=== PATIENT | male | born 1940 | race Two or more races ===

== ENCOUNTER 2023-11-19 19:41 | Emergency (ER) | payer MEDICARE, OTHER ==
[~2023-11-19] VITALS: Ht 167.6 cm; Wt 59.0 kg
[2023-11-19] MEDS ORDERED: ACETAMINOPHEN 325 MG TABLET ONE (21:32)
[2023-11-19] MEDS: ACETAMINOPHEN 325 MG TABLET PO ONE (21:38)
[2023-11-19 21:47] LABS: BASOPHILS # (AUTO) 0.1 K/uL (0.0-0.2); BASOPHILS % (AUTO) 0.5 % (0.0-2.0); EOSINOPHILS # (AUTO) 0.1 K/uL (0.0-0.7); EOSINOPHILS % (AUTO) 0.6 % (0.0-6.0); HEMATOCRIT 39 % (39-51); HEMOGLOBIN 12.8 g/dL (13.5-17.5); LYMPHOCYTES # (AUTO) 1.5 K/uL (0.8-4.8); MEAN CORPUSCULAR HEMOGLOBIN 28 PG (26.0-33.0); MEAN CORPUSCULAR HGB CONC 33 g/dl (31.0-36.0); MEAN CORPUSCULAR VOLUME 83 fL (80-96); MONOCYTES # (AUTO) 0.9 K/uL (0.1-1.30); MONOCYTES % (AUTO) 8.4 % (2.0-12.0); NEUTROPHILS # (AUTO) 8.1 K/uL (1.8-8.9); NEUTROPHILS % (AUTO) 76.5 % (43.0-81.0); PLATELET COUNT (AUTO) 201 K/uL (150-450); RED BLOOD CELL COUNT(AUTO) 4.66 MIL/uL (4.5-6.0); RED CELL DISTRIBUTION WIDTH 16.8 % (11.5-15.0); WHITE BLOOD COUNT (AUTO) 10.6 K/uL (4.3-11.0)
[2023-11-19 21:56] LABS: CALCIUM, SERUM 9.8 mg/dL (8.5-10.1); CARBON DIOXIDE 26 mmol/L (21-32); CHLORIDE 106 mmol/L (98-107); CREATININE 1.2 mg/dL (0.6-1.3); GLUCOSE 150 mg/dL (74-106); POTASSIUM 4.5 mmol/L (3.5-5.1); SODIUM SERUM 137 mmol/L (136-145); UREA NITROGEN, BLOOD 18 mg/dL (7-18)
[2023-11-19 22:02] LABS: ALANINE AMINOTRANSFERASE 22 U/L (12-78); ALBUMIN 3.3 g/dL (3.4-5.0); ALKALINE PHOSPHATASE 103 U/L (46-116); ASPARTATE AMINOTRANSFERASE 16 U/L (15-37); BILIRUBIN,DIRECT 0.2 mg/dL (0.0-0.2); BILIRUBIN,TOTAL 0.6 mg/dL (0.2-1.0); TOTAL PROTEIN, SERUM 7.7 g/dL (6.4-8.2)
[2023-11-20 03:07] VITALS: BP 127/77; TEMP 98.6; O2SAT 96
== END 2023-11-20 03:08 ==
LOC: ER 19:42
DX: M54.2 Cervicalgia (principal); M25.512 Pain in left shoulder; R51.9 Headache, unspecified; I10 Essential (primary) hypertension; I48.91 Unspecified atrial fibrillation; E78.5 Hyperlipidemia, unspecified; E11.9 Type 2 diabetes mellitus without complications; Z86.59 Personal history of other mental and behavioral disorders
CPT/HCPCS: 36415; 70450-TC; 71045-TC; 71250-TC; 72125-TC; 73030-TC; 80048-TC; 80076-TC; 84484-TC; 85025-TC

== ENCOUNTER 2024-01-30 11:30 | Inpatient (IN) | payer MEDICARE, OTHER ==
[~2024-01-30] VITALS: Ht 167.6 cm; Wt 54.9 kg
[2024-01-30] MEDS: IV NS 0.9% 1,000 ML BAG IV ONE ×2 (11:45→12:50)
[2024-01-30 12:07] LABS: VBG BASE EXCESS -1.6 mmol/L (-3-3); VBG COHb 5.1 %; VBG MetHb 0.3 %; VBG O2Hb 49.3 %; VBG OXYGEN SATURATION 52.1 %; VBG PCO2 38.8 mmHg (40-52); VBG PH 7.392 (7.31-7.41); VBG PO2 26.1 mmHg (30-50); VBG TOTAL HEMOGLOBIN 12.1 G/dL (13.5-18.0); VENT MODE, VBG ROOM AIR
[2024-01-30 12:18] LABS: CALCIUM, SERUM 9.2 mg/dL (8.5-10.1); CARBON DIOXIDE 30 mmol/L (21-32); CHLORIDE 95 mmol/L (98-107); CREATININE 1.1 mg/dL (0.6-1.3); POTASSIUM 4.6 mmol/L (3.5-5.1); SODIUM SERUM 129 mmol/L (136-145); UREA NITROGEN, BLOOD 14 mg/dL (7-18)
[2024-01-30 12:19] LABS: BASOPHILS % (AUTO) 0.5 % (0.0-2.0); EOSINOPHILS # (AUTO) 0.1 K/uL (0.0-0.7); EOSINOPHILS % (AUTO) 1.4 % (0.0-6.0); HEMATOCRIT 37 % (39-51); HEMOGLOBIN 11.9 g/dL (13.5-17.5); LYMPHOCYTES # (AUTO) 1.2 K/uL (0.8-4.8); LYMPHOCYTES % (AUTO) 21.3 % (20.0-44.0); MEAN CORPUSCULAR HEMOGLOBIN 29 PG (26.0-33.0); MEAN CORPUSCULAR HGB CONC 32 g/dl (31.0-36.0); MEAN CORPUSCULAR VOLUME 89 fL (80-96); MONOCYTES # (AUTO) 0.4 K/uL (0.1-1.30); MONOCYTES % (AUTO) 6.1 % (2.0-12.0); NEUTROPHILS # (AUTO) 4.1 K/uL (1.8-8.9); NEUTROPHILS % (AUTO) 70.7 % (43.0-81.0); PLATELET COUNT (AUTO) 148 K/uL (150-450); RED BLOOD CELL COUNT(AUTO) 4.13 MIL/uL (4.5-6.0); RED CELL DISTRIBUTION WIDTH 17.9 % (11.5-15.0); WHITE BLOOD COUNT (AUTO) 5.8 K/uL (4.3-11.0)
[2024-01-30 12:25] LABS: ALANINE AMINOTRANSFERASE 25 U/L (12-78); ALBUMIN 2.7 g/dL (3.4-5.0); ALKALINE PHOSPHATASE 161 U/L (46-116); ASPARTATE AMINOTRANSFERASE 11 U/L (15-37); BILIRUBIN,DIRECT 0.2 mg/dL (0.0-0.2); BILIRUBIN,TOTAL 0.5 mg/dL (0.2-1.0); LIPASE 71 U/L (16-77); TOTAL PROTEIN, SERUM 6.4 g/dL (6.4-8.2)
[2024-01-30 12:30] LABS: GLUCOSE 665 mg/dL (74-106)
[2024-01-30 12:41] LABS: APPEARANCE,URINE CLEAR (CLEAR); BILIRUBIN,URINE NEGATIVE (NEGATIVE); BLOOD, URINE NEGATIVE Ery/uL (NEGATIVE); COLOR,URINE YELLOW (YELLOW); KETONES,URINE NEGATIVE (NEGATIVE); LEUKOCYTE ESTERASE ,URINE NEGATIVE (NEGATIVE); NITRITE, URINE POSITIVE (NEGATIVE); PROTEIN,URINE NEGATIVE (NEGATIVE); UGLUCOSE 3+ mg/dL (NEGATIVE); UROBILINOGEN,URINE 0.2 EU/dL (0.2)
[2024-01-30] MEDS ORDERED: INSULIN REGULAR, HUMAN 100 UNIT/ML 10 ML VIAL ONE (12:47)
[2024-01-30] MEDS: INSULIN REGULAR, HUMAN 100 UNIT/ML 10 ML VIAL SQ ONE (12:51)
[2024-01-30 12:57] LABS: ADD URINE CULTURE YES; BACTERIA,URINE Few /HPF (None Seen); RBC,URINE 0-2 /HPF (0-2); SQUAMOUS EPITHELIAL CELL,UR Rare /HPF (None Seen)
[2024-01-30] MEDS ORDERED: CYAN-51 PO (13:18)
[2024-01-30] MEDS ORDERED: DEXA1TAB PO (13:18)
[2024-01-30] MEDS ORDERED: HYDR-500 PO (13:18)
[2024-01-30] MEDS ORDERED: PYRI100T10 PO (13:18)
[2024-01-30] MEDS ORDERED: ASPI-1169 PO (13:18)
[2024-01-30] MEDS ORDERED: METF-442 PO (13:18)
[2024-01-30] MEDS ORDERED: PARO10TA4 PO (13:18)
[2024-01-30] MEDS ORDERED: GLIP5TAB13 PO (13:18)
[2024-01-30] MEDS ORDERED: FAMO20TA80 PO (13:18)
[2024-01-30] MEDS ORDERED: MAGN400T30 PO (13:18)
[2024-01-30] MEDS ORDERED: CANA100T PO (13:18)
[2024-01-30] MEDS ORDERED: TIZA-180 PO (13:18)
[2024-01-30] MEDS ORDERED: CLINDAMYCIN PHO TP (13:18)
[2024-01-30] MEDS ORDERED: DIPH103G TP (13:18)
[2024-01-30] MEDS ORDERED: BENZ1TAB7 PO (13:18)
[2024-01-30] MEDS ORDERED: NITR0.4T48 SL (13:18)
[2024-01-30] MEDS ORDERED: NATE120T6 PO (13:18)
[2024-01-30] MEDS ORDERED: ONDA-97 PO (13:18)
[2024-01-30] MEDS ORDERED: DIVA125C5 PO (13:18)
[2024-01-30] MEDS ORDERED: APIX2.5T PO (13:18)
[2024-01-30] MEDS ORDERED: ONDANSETRON HCL/PF 4 MG/2 ML VIAL IVP PRN (16:00)
[2024-01-30] MEDS ORDERED: ZOLPIDEM TARTRATE 5 MG TABLET PO PRN (16:00)
[2024-01-30] MEDS ORDERED: NITROGLYCERIN 0.4 MG/TAB BOTTLE SL PRN (16:00)
[2024-01-30] MEDS ORDERED: DEXTROSE 50%-WATER 50 ML DISP.SYRIN IV PRN (16:00)
[2024-01-30] MEDS ORDERED: ACETAMINOPHEN 325 MG TABLET PO PRN (16:00)
[2024-01-30] MEDS ORDERED: MAG HYDROX/AL HYDROX/SIMETH 30 ML UDC PO PRN (16:00)
[2024-01-30] MEDS ORDERED: MAGNESIUM HYDROXIDE 30 ML UDC PO PRN (16:00)
[2024-01-30 16:10] VITALS: O2SAT 96
[2024-01-30] MEDS ORDERED: TIZANIDINE HCL 4 MG TABLET PO PRN (17:00)
[2024-01-30] MEDS ORDERED: hydrOXYzine PAMOATE 25 MG CAPSULE PO PRN (17:00)
[2024-01-30] MEDS: BENZTROPINE MESYLATE (1 MG) 1 MG TABLET PO SCH (17:12)
[2024-01-30] MEDS: BLOOD SUGAR DIAGNOSTIC 1 EACH STRIP IN SCH (17:13)
[2024-01-30] MEDS: APIXABAN 2.5 MG TABLET PO SCH (17:13)
[2024-01-30] MEDS: METFORMIN 500 MG TABLET PO SCH (18:45)
[2024-01-30] MEDS: IV NS 0.9% 1,000 ML IV PRN (18:45)
[2024-01-30 20:00] VITALS: BP 100/61; TEMP 98.1; O2SAT 95
[2024-01-30] MEDS: DIVALPROEX SODIUM 125 MG CAP.SPRINK PO SCH (21:01)
[2024-01-30] MEDS: dexAMETHasone 1 MG TABLET PO SCH (21:01)
[2024-01-30] MEDS: INSULIN REGULAR, HUMAN 100 UNIT/ML 3 ML VIAL SQ PRN (22:25)
[2024-01-30] MEDS: *INSULIN REGULAR(HUMULIN R)HUM 100 UNIT/ML VIAL SQ PRN (22:30)
[2024-01-31 06:47] LABS: BASOPHILS % (AUTO) 0.3 % (0.0-2.0); EOSINOPHILS # (AUTO) 0.3 K/uL (0.0-0.7); EOSINOPHILS % (AUTO) 4.4 % (0.0-6.0); HEMATOCRIT 35 % (39-51); HEMOGLOBIN 11.6 g/dL (13.5-17.5); LYMPHOCYTES % (AUTO) 30.5 % (20.0-44.0); MEAN CORPUSCULAR HEMOGLOBIN 29 PG (26.0-33.0); MEAN CORPUSCULAR HGB CONC 33 g/dl (31.0-36.0); MEAN CORPUSCULAR VOLUME 86 fL (80-96); MONOCYTES # (AUTO) 0.5 K/uL (0.1-1.30); MONOCYTES % (AUTO) 7.2 % (2.0-12.0); NEUTROPHILS # (AUTO) 3.8 K/uL (1.8-8.9); NEUTROPHILS % (AUTO) 57.6 % (43.0-81.0); PLATELET COUNT (AUTO) 145 K/uL (150-450); RED BLOOD CELL COUNT(AUTO) 4.03 MIL/uL (4.5-6.0); RED CELL DISTRIBUTION WIDTH 18.4 % (11.5-15.0); WHITE BLOOD COUNT (AUTO) 6.5 K/uL (4.3-11.0)
[2024-01-31 07:20] LABS: CALCIUM, SERUM 8.7 mg/dL (8.5-10.1); CARBON DIOXIDE 24 mmol/L (21-32); CHLORIDE 105 mmol/L (98-107); CREATININE 0.8 mg/dL (0.6-1.3); GLUCOSE 117 mg/dL (74-106); MAGNESIUM 1.4 mg/dL (1.8-2.4); PHOSPHORUS 2.5 mg/dL (2.5-4.9); SODIUM SERUM 137 mmol/L (136-145); UREA NITROGEN, BLOOD 12 mg/dL (7-18)
[2024-01-31] MEDS ORDERED: ONDANSETRON 4 MG TAB.RAPDIS PO PRN (07:30)
[2024-01-31] MEDS: NATEGLINIDE 60 MG TABLET PO SCH (07:56)
[2024-01-31] MEDS: FAMOTIDINE (20 MG) 20 MG TABLET PO SCH (07:56)
[2024-01-31] MEDS: PANTOPRAZOLE 40 MG TABLET.DR PO SCH (07:56)
[2024-01-31 08:00] VITALS: BP 107/52; TEMP 98.1; O2SAT 97
[2024-01-31] MEDS ORDERED: INVOKANA 100 MG PO SCH (09:00)
[2024-01-31] MEDS: ASPIRIN 81 MG TAB.CHEW PO SCH (09:48)
[2024-01-31] MEDS: glipiZIDE 5 MG TABLET PO SCH (09:53)
[2024-01-31] MEDS: MAGNESIUM OXIDE 400 MG TABLET PO SCH (09:54)
[2024-01-31] MEDS: PAROXETINE HCL 10 MG TABLET PO SCH (09:55)
[2024-01-31] MEDS: CYANOCOBALAMIN 500 MCG TABLET PO SCH (09:55)
[2024-01-31] MEDS: PYRIDOXINE HCL 50 MG TABLET PO SCH (09:55)
[2024-01-31] MEDS: Z GUARD REMEDY 4 OZ OINT TP PRN (12:12)
[2024-01-31 16:00] VITALS: BP 116/67; TEMP 98.5; O2SAT 95
[2024-01-31 20:38] VITALS: BP 118/80; TEMP 97.9; O2SAT 98
[2024-02-01 07:42] LABS: BASOPHILS % (AUTO) 0.3 % (0.0-2.0); EOSINOPHILS # (AUTO) 0.1 K/uL (0.0-0.7); EOSINOPHILS % (AUTO) 1.3 % (0.0-6.0); HEMATOCRIT 37 % (39-51); LYMPHOCYTES % (AUTO) 22.2 % (20.0-44.0); MEAN CORPUSCULAR HEMOGLOBIN 28 PG (26.0-33.0); MEAN CORPUSCULAR HGB CONC 32 g/dl (31.0-36.0); MEAN CORPUSCULAR VOLUME 87 fL (80-96); MONOCYTES # (AUTO) 0.4 K/uL (0.1-1.30); MONOCYTES % (AUTO) 4.5 % (2.0-12.0); NEUTROPHILS # (AUTO) 6.5 K/uL (1.8-8.9); NEUTROPHILS % (AUTO) 71.7 % (43.0-81.0); PLATELET COUNT (AUTO) 164 K/uL (150-450); RED BLOOD CELL COUNT(AUTO) 4.25 MIL/uL (4.5-6.0); RED CELL DISTRIBUTION WIDTH 18.2 % (11.5-15.0); WHITE BLOOD COUNT (AUTO) 9.1 K/uL (4.3-11.0)
[2024-02-01 08:00] VITALS: BP 143/100; TEMP 98.4; O2SAT 20
[2024-02-01 08:44] LABS: CALCIUM, SERUM 8.7 mg/dL (8.5-10.1); CARBON DIOXIDE 20 mmol/L (21-32); CHLORIDE 102 mmol/L (98-107); GLUCOSE 395 mg/dL (74-106); MAGNESIUM 1.3 mg/dL (1.8-2.4); PHOSPHORUS 2.4 mg/dL (2.5-4.9); POTASSIUM 4.9 mmol/L (3.5-5.1); SODIUM SERUM 135 mmol/L (136-145); UREA NITROGEN, BLOOD 14 mg/dL (7-18)
[2024-02-01] MEDS ORDERED: MAGNESIUM OXIDE 400 MG TABLET PO ONE (10:30)
[2024-02-01] MEDS: MAGNESIUM OXIDE 400 MG TABLET PO ONE ×2 (11:02→11:13)
[2024-02-01 16:00] VITALS: BP 100/60; TEMP 98; O2SAT 94
[2024-02-01] MEDS: K PHOS NEUTRAL 250 MG TABLET PO ONE (17:31)
[2024-02-02] MEDS ORDERED: EMPAGLIFLOZIN 25 MG TABLET PO SCH (15:00)
== END 2024-02-01 19:10 | DRG 638 ==
LOC: ER 11:50 → MED 14:58
PROVIDERS: ADMIT Student in an Organized Health Care Education/Training Program; ATTEND Student in an Organized Health Care Education/Training Program
DX: E11.65 Type 2 diabetes mellitus with hyperglycemia (principal); E44.0 Moderate protein-calorie malnutrition; Z68.1 Body mass index [BMI] 19.9 or less, adult; D69.6 Thrombocytopenia, unspecified; I48.91 Unspecified atrial fibrillation; I25.10 Atherosclerotic heart disease of native coronary artery without angina pectoris; E78.5 Hyperlipidemia, unspecified; E83.42 Hypomagnesemia; D64.9 Anemia, unspecified; I10 Essential (primary) hypertension; Z79.01 Long term (current) use of anticoagulants; Z79.4 Long term (current) use of insulin; Z79.82 Long term (current) use of aspirin; Z79.84 Long term (current) use of oral hypoglycemic drugs; R53.1 Weakness; Z20.822 Contact with and (suspected) exposure to COVID-19
CPT/HCPCS: 36415; 71045-TC; 80048-TC; 80076-TC; 81001; 82010-TC; 82803-TC; 82962-TC; 83690-TC; 83735-TC; 84100-TC; 84484-TC; 85025-TC; 87081-TC; 87086-TC; 97110-TC; 97116-TC; 97530-TC; A4223; G0378; J1815; J7030; J8540